=== PATIENT | male | born 1985 | race Hispanic/Latino ===

== ENCOUNTER 2018-08-28 12:06 | Emergency (ER) | payer OTHER ==
[2018-08-28] MEDS ORDERED: TETRACAINE HCL 0.5% 4 ML OPHTH SOLN ONE (12:39)
[2018-08-28] MEDS ORDERED: NA BORATE/BORIC AC/H2O/NACL 120 ML OPHTH IRRIG SOLN ONE (12:40)
[2018-08-28] MEDS ORDERED: FLUORESCEIN SODIUM 1 STRIP STRIP ONE (12:40)
[2018-08-28] MEDS ORDERED: TETANUS/DIPHTHERIA TOXOID [ADULT] 0.5 ML VIAL IM ONE (13:19)
== END 2018-08-28 13:26 | disposition home or self-care (01) ==
LOC: EDH 12:06
DX: H18.821 Corneal disorder due to contact lens, right eye (principal); I10 Essential (primary) hypertension; Z88.8 Allergy status to other drugs, medicaments and biological substances
CPT/HCPCS: 90471; 90714